=== PATIENT | female | born 1975 | race African-American/Black ===

== ENCOUNTER → 2017-02-25 | Outpatient (CLI) | payer OTHER | LOC: RAD 10:07 | DX: Z12.31 Encounter for screening mammogram for malignant neoplasm of breast (principal) ==

== ENCOUNTER → 2017-02-28 | Outpatient (CLI) | payer OTHER | LOC: RAD 02:49 | DX: R92.8 Other abnormal and inconclusive findings on diagnostic imaging of breast (principal) ==

== ENCOUNTER → 2017-10-29 | Outpatient (CLI) | payer OTHER | LOC: RAD 02:15 | DX: R92.8 Other abnormal and inconclusive findings on diagnostic imaging of breast (principal) ==

== ENCOUNTER → 2018-02-13 | Outpatient (CLI) | payer OTHER | LOC: ULTRA 08:26 | DX: R10.2 Pelvic and perineal pain (principal) ==

== ENCOUNTER → 2018-06-24 | Outpatient (CLI) | payer OTHER | LOC: RAD 06-16 02:25 | DX: N60.11 Diffuse cystic mastopathy of right breast (principal); N60.12 Diffuse cystic mastopathy of left breast; R92.2 Inconclusive mammogram ==

== ENCOUNTER 2019-10-04 07:35 | Emergency (ER) | payer OTHER ==
[~2019-10-04] VITALS: Ht 162.6 cm; Wt 111.1 kg
[2019-10-04 07:35] VITALS: BP 125/59
[2019-10-04] MEDS ORDERED: NORFLEX100 MG PO (08:24)
[2019-10-04] MEDS ORDERED: NAPROSYN500 MG PO (08:24)
== END 2019-10-04 08:37 | disposition home or self-care (01) ==
LOC: ER 07:35
DX: S76.811A Strain of other specified muscles, fascia and tendons at thigh level, right thigh, initial encounter (principal); W18.39XA Other fall on same level, initial encounter; Y93.89 Activity, other specified; Y92.89 Other specified places as the place of occurrence of the external cause; Y99.8 Other external cause status